=== PATIENT | female | born 1955 | race Caucasian/White ===

== ENCOUNTER 2017-09-18 11:16 | Inpatient (IN) | payer OTHER ==
[2017-09-18] MEDS: LACTATED RINGER'S 1,000 ML IV* (12:25)
[2017-09-18] MEDS: oxyCODONE (CR) 10 MG TAB [oxyCONTIN] PO (12:27)
[2017-09-18] MEDS: ACETAMINOPHEN 1000MG/100ML IV 100 ML IVPB (12:27)
[2017-09-18] MEDS: DEXAMETHASONE 4 MG/ML 1 ML INJ IV (12:28)
[2017-09-18] MEDS: LANSOPRAZOLE 30 MG CAP PO (12:30)
[2017-09-18] MEDS: ONDANSETRON 4 MG INJ IV ×3 (12:30→23:48)
[2017-09-18] MEDS: TRANEXAMIC ACID 1,000 MG in NS 100 ML PRE-OP X1 IVPB (13:00)
[2017-09-18] MEDS: TRANEXAMIC ACID 1,000 MG in NS 100 ML INTRA-OP X1 IVPB (13:00)
[2017-09-18] MEDS ORDERED: oxyCODONE 5 MG TAB PO ×2 (14:30)
[2017-09-18] MEDS ORDERED: NACL 0.9% 3 ML SYG IV (14:30)
[2017-09-18] MEDS ORDERED: BETHANECHOL 25 MG TAB PO (14:30)
[2017-09-18] MEDS ORDERED: NALOXONE (0.4 MG/ML) INJ IV (14:30)
[2017-09-18] MEDS: HIP PAIN COCKTAIL (CEFUROXIME) INJ (14:30)
[2017-09-18] MEDS ORDERED: SENNA/DOCUSATE NA (8.6MG/50MG) TAB PO (14:30)
[2017-09-18] MEDS ORDERED: NA PHOSPHATE/BIPHOS 133 ML ENEMA PR (14:30)
[2017-09-18] MEDS ORDERED: MAGNESIUM HYDROXIDE 30ML CUP PO (14:30)
[2017-09-18] MEDS ORDERED: DIPHENHYDRAMINE 50 MG INJ IV (14:30)
[2017-09-18] MEDS ORDERED: morphine SULFATE/PF (10 MG/10 ML) INJ (14:37)
[2017-09-18] MEDS ORDERED: BUPIVACAINE 0.75%/DEXT (SPINAL) 2 ML INJ (14:37)
[2017-09-18] MEDS ORDERED: MIDAZOLAM 1 MG/ML 2 ML INJ (14:56)
[2017-09-18] MEDS ORDERED: CEFAZOLIN 1 GM INJ (15:09)
[2017-09-18] MEDS ORDERED: ROCURONIUM 50 MG INJ (15:09)
[2017-09-18] MEDS ORDERED: SUGAMMADEX SODIUM 200 MG/2 ML VIAL IV (15:09)
[2017-09-18] MEDS ORDERED: PROPOFOL 20 ML (15:09)
[2017-09-18] MEDS ORDERED: SUCCINYLCHOLINE CHLORIDE 100 MG/5 ML SYG IV (15:09)
[2017-09-18] MEDS ORDERED: LIDOCAINE 100 MG SYRINGE (15:09)
[2017-09-18] MEDS: POLYMYXIN B 500000 UNIT INJ (15:30)
[2017-09-18] MEDS: BACITRACIN 50000 UNITS INJ (15:30)
[2017-09-18] MEDS ORDERED: PHENYLephrine (100 MCG/ML) 5ML SYG (15:40)
[2017-09-18] MEDS ORDERED: ALBUMIN HUMAN 5% 250 ML (16:57)
[2017-09-18] MEDS: CEFAZOLIN 1 GM/50 ML (PMX) 50 ML IVPB (18:05)
[2017-09-18] MEDS: ASPIRIN (EC) 325 MG TAB PO ×2 (18:06→21:00)
[2017-09-18] MEDS: DOCUSATE SODIUM 100 MG CAP PO (18:06)
[2017-09-18] MEDS: SOD CHLORIDE 0.9% 1,000 ML IV ×2 (18:07→23:51)
[2017-09-19] MEDS: ONDANSETRON 4 MG INJ IV ×3 (01:39→15:01)
[2017-09-19] MEDS: CEFAZOLIN 1 GM/50 ML (PMX) 50 ML IVPB ×2 (01:44→10:05)
[2017-09-19 05:18] LABS: ADD MAN DIFF? NO
[2017-09-19 05:23] LABS: BASOPHILS % 0.1 % (0.0-2.0); HEMATOCRIT 25.5 % (37.0-47.0); HEMOGLOBIN 8.3 g/dl (12.0-16.0); LYMPHOCYTES % 12.4 % (15.0-51.0); MEAN CORPUSCULAR HEMOGLOBIN 29.1 pg (29.0-33.0); MEAN CORPUSCULAR HGB CONC 32.5 g/dl (32.0-37.0); MEAN CORPUSCULAR VOLUME 89.5 fl (82.0-101.0); MEAN PLATELET VOLUME 10.1 fl (7.4-10.4); MONOCYTE # 0.6 10^3/ul (0.3-0.9); MONOCYTES % 7.3 % (0.0-11.0); NEUTROPHIL # 6.4 10^3/ul (1.6-7.5); NEUTROPHILS % 79.7 % (39.0-77.0); PLATELET COUNT 149 10^3/UL (140-415); RED BLOOD COUNT 2.85 10^6/ul (4.20-5.40); RED CELL DISTRIBUTION WIDTH 13.2 % (11.5-14.5)
[2017-09-19 05:41] LABS: ANION GAP 7 (8-16); BLOOD UREA NITROGEN 15 mg/dl (7-20); CALCIUM 8.4 mg/dl (8.4-10.2); CARBON DIOXIDE 28 mmol/L (21-31); CHLORIDE 108 mmol/L (97-110); CREATININE 0.68 mg/dl (0.44-1.00); GLUCOSE 91 mg/dl (70-220); POTASSIUM 4.4 mmol/L (3.5-5.1); SODIUM 139 mmol/L (135-144)
[2017-09-19] MEDS: PANTOPRAZOLE (EC) 40 MG TAB PO (06:41)
[2017-09-19] MEDS: DOCUSATE SODIUM 100 MG CAP PO ×2 (09:20→20:33)
[2017-09-19] MEDS: FERROUS FUMARATE (SR) TAB PO ×2 (09:20→20:33)
[2017-09-19] MEDS: SUMATRIPTAN 25 MG TAB PO (10:05)
[2017-09-19] MEDS: CELECOXIB 200 MG CAP PO ×2 (10:11→20:33)
[2017-09-19] MEDS: ASPIRIN (EC) 325 MG TAB PO ×2 (10:11→20:33)
[2017-09-19] MEDS: oxyCODONE 5 MG TAB PO (15:01)
[2017-09-19] MEDS: SOD CHLORIDE 0.9% 1,000 ML IV (15:11)
[2017-09-19 17:50] LABS: ADD UMIC NO; UR ASCORBIC ACID 20 mg/dL (NEGATIVE); UR BILIRUBIN (Dip) NEGATIVE (NEGATIVE); UR BLOOD (Dip) NEGATIVE (NEGATIVE); UR CLARITY CLEAR (CLEAR); UR COLOR YELLOW (YELLOW); UR GLUCOSE (Dip) NEGATIVE (NEGATIVE); UR KETONES (Dip) NEGATIVE (NEGATIVE); UR LEUKOCYTE ESTERASE (Dip) NEGATIVE Leu/ul (NEGATIVE); UR NITRITE (Dip) NEGATIVE (NEGATIVE); UR SPECIFIC GRAVITY (Dip) 1.016 (1.003-1.030); UR TOTAL PROTEIN (Dip) NEGATIVE (NEGATIVE); UR UROBILINOGEN (Dip) NEGATIVE (NEGATIVE)
[2017-09-20] MEDS: SUMATRIPTAN 50 MG TAB PO ×4 (00:12→20:54)
[2017-09-20] MEDS: SOD CHLORIDE 0.9% 1,000 ML IV ×2 (03:41→16:11)
[2017-09-20] MEDS: PANTOPRAZOLE (EC) 40 MG TAB PO (05:23)
[2017-09-20] MEDS: CELECOXIB 200 MG CAP PO ×2 (05:23→18:54)
[2017-09-20 05:37] LABS: ADD MAN DIFF? NO
[2017-09-20 05:50] LABS: WHITE BLOOD COUNT 7.1 10^3/ul (4.8-10.8)
[2017-09-20 05:50] LABS: BASOPHILS % 0.3 % (0.0-2.0); EOSINOPHILS % 0.4 % (0.0-7.0); HEMATOCRIT 26.9 % (37.0-47.0); HEMOGLOBIN 8.8 g/dl (12.0-16.0); LYMPHOCYTES # 0.8 10^3/ul (0.8-2.9); LYMPHOCYTES % 11.7 % (15.0-51.0); MEAN CORPUSCULAR HEMOGLOBIN 29.5 pg (29.0-33.0); MEAN CORPUSCULAR HGB CONC 32.7 g/dl (32.0-37.0); MEAN CORPUSCULAR VOLUME 90.3 fl (82.0-101.0); MEAN PLATELET VOLUME 10.2 fl (7.4-10.4); MONOCYTE # 0.6 10^3/ul (0.3-0.9); MONOCYTES % 8.6 % (0.0-11.0); NEUTROPHIL # 5.6 10^3/ul (1.6-7.5); NEUTROPHILS % 78.6 % (39.0-77.0); PLATELET COUNT 138 10^3/UL (140-415); RED BLOOD COUNT 2.98 10^6/ul (4.20-5.40); RED CELL DISTRIBUTION WIDTH 13.4 % (11.5-14.5)
[2017-09-20 06:19] LABS: ANION GAP 6 (8-16); BLOOD UREA NITROGEN 14 mg/dl (7-20); CALCIUM 8.6 mg/dl (8.4-10.2); CARBON DIOXIDE 28 mmol/L (21-31); CHLORIDE 109 mmol/L (97-110); CREATININE 0.64 mg/dl (0.44-1.00); GLUCOSE 104 mg/dl (70-220); POTASSIUM 4.2 mmol/L (3.5-5.1); SODIUM 139 mmol/L (135-144)
[2017-09-20] MEDS: ASPIRIN (EC) 325 MG TAB PO ×2 (09:28→20:54)
[2017-09-20] MEDS: FERROUS FUMARATE (SR) TAB PO ×2 (09:29→20:53)
[2017-09-20] MEDS: DOCUSATE SODIUM 100 MG CAP PO ×2 (09:29→20:54)
[2017-09-20] MEDS: BISACODYL 10 MG SUPP PR (14:32)
[2017-09-20] MEDS: ACETAMINOPHEN 325 MG TAB PO (17:34)
== END 2017-09-20 21:30 | disposition home health service (06) | DRG 470 ==
LOC: REC 11:16 → MS1 18:50
PROC: 0SR904A Replacement of Right Hip Joint with Ceramic on Polyethylene Synthetic Substitute, Uncemented, Open Approach (ICD-10-PCS; principal; 2017-09-18 13:30)
PROC: 8E0YXBZ Computer Assisted Procedure of Lower Extremity (ICD-10-PCS; 2017-09-18 13:30)
DX: M16.11 Unilateral primary osteoarthritis, right hip (principal); M41.9 Scoliosis, unspecified
CPT/HCPCS: 72170; 73500; 73530; 80048; 81003; 85025; 87081; 87086; 88304; 88311; 97110; 97116; 97161; 97165; 97530